=== PATIENT | female | born 1935 | race African-American/Black ===

== ENCOUNTER 2020-09-17 14:04 | Inpatient (IN) | payer MEDICARE, OTHER ==
[~2020-09-17] VITALS: Ht 170.2 cm
[2020-09-17] MEDS: MIDAZOLAM DRIP 50 mg/50mL 50 ML IV SCH ×2 (14:30→22:03)
[2020-09-17] MEDS ORDERED: fentaNYL Drip 2500mCg/250mlNS 250 ML IV SCH (14:30)
[2020-09-17 15:06] LABS: Eosinophils # (auto) 0.1 10 ^3/uL (0-0.8); Hemoglobin 8.9 g/dL (12.2-16.2); Monocytes # (auto) 0.2 10 ^3/uL (0-1.3); Neutrophils # (auto) 2.4 10 ^3/uL (1.6-8.6)
[2020-09-17 15:09] LABS: Basophils # (auto) 0.1 10 ^3/uL (0-0.2); Basophils % (auto) 1.3 % (0.0-2.0); Eosinophils % (auto) 1.4 % (0.0-7.0); Hematocrit 30.5 % (36.0-46.0); Lymphocytes # (auto) 2.8 10 ^3/uL (0.4-5.4); Lymphocytes % (auto) 51.2 % (10.0-50.0); Mean Corpuscular Hemoglobin 28.9 pg (28.0-32.0); Mean Corpuscular Volume 99.4 fL (80.0-100.0); Monocytes % (auto) 3.2 % (0.0-12.0); Neutrophils % (auto) 42.9 % (37.0-80.0); Platelet Count (auto) 116 10^3/uL (140-450); Red Blood Cells 3.07 10^6/uL (4.0-5.20); Red Cell Distribution Width 18.6 % (11.8-14.3); White Blood Cell 5.5 10^3/uL (4.4-10.8)
[2020-09-17 15:23] LABS: Albumin 1.5 g/dL (3.4-5.0); Calcium 6.3 mg/dL (8.5-10.1); Potassium 3.2 mmol/L (3.5-5.1)
[2020-09-17 15:26] LABS: BUN/Creatinine Ratio 7.4; Bilirubin, Total 0.3 mg/dL (0.2-1.0); Lactic Acid w/Reflex 9.5 mmol/L (0.4-2.0); Total Protein 3.1 g/dL (6.4-8.2)
[2020-09-17 15:51] LABS: Alcohol, Urine < 3.0 mg/dL (0-10); Amphetamine Screen, Urine NEGATIVE (NEGATIVE); Barbiturate Scree,Urine NEGATIVE (NEGATIVE); Benzodiazephine Screen, Urine NEGATIVE (NEGATIVE); Cannabinoid Screen, Urine NEGATIVE (NEGATIVE); Cocaine Screen, Urine NEGATIVE (NEGATIVE); Opiate Scree,Urine NEGATIVE (NEGATIVE); Phencyclidine Screen, Urine NEGATIVE (NEGATIVE)
[2020-09-17] MEDS: NOREPINEPHRINE 8 MG/250ML KIT 250 ML IV SCH (16:15)
[2020-09-17] MEDS ORDERED: SPIR25TA8 PO (16:52)
[2020-09-17] MEDS ORDERED: CARV6.2551 PO (16:52)
[2020-09-17] MEDS ORDERED: CHOL500021 PO (16:52)
[2020-09-17] MEDS ORDERED: FURO40TA4 PO (16:52)
[2020-09-17] MEDS ORDERED: ASPI-543 PO (16:52)
[2020-09-17] MEDS ORDERED: OYST500T29 PO (16:52)
[2020-09-17] MEDS ORDERED: AMIO200T4 PO (16:52)
[2020-09-17] MEDS ORDERED: NITROGLYCERIN 0.4 MG SL TAB SL PRN (17:15)
[2020-09-17] MEDS ORDERED: MORPHINE SULF INJ 2 MG/ML SYRINGE 1ML IV PRN (17:15)
[2020-09-17] MEDS ORDERED: ACETAMINOPHEN 650 MG RECT SUPP PR PRN (17:15)
[2020-09-17] MEDS ORDERED: CALCIUM CHL 100MG/ML 1,000 MG in D5W 5% 100 ML IV ONE (17:15)
[2020-09-17] MEDS ORDERED: CALCIUM GLUC 4.65meq/50ml D5AE 50 ML IV ONE ×2 (17:29→17:45)
[2020-09-17] MEDS ORDERED: POTASSIUM CHL 20MEQ/100ML 100 ML IV ONE (17:54)
[2020-09-17] MEDS ORDERED: AZITHROMYCIN 500MG/ 250ML 250 ML IV ONE ×2 (18:00)
[2020-09-17] MEDS: POTASSIUM CHL 20MEQ/100ML 100 ML IV SCH ×2 (18:06→20:11)
[2020-09-17 18:12] LABS: INR 2.05 (0.9-1.15)
[2020-09-17] MEDS: DOPamine 1600MCG/ML D5W 250 ML IV SCH ×2 (18:50→23:42)
[2020-09-17 21:17] VITALS: BP 120/50
[2020-09-17] MEDS: HEPARIN SODIUM (PORCINE) 5000 UNITS/ML 1ML VIAL SC SCH (23:23)
[2020-09-18] MEDS: NOREPINEPHRINE 8 MG/250ML KIT 250 ML IV SCH ×2 (02:15→07:00)
[2020-09-18 02:35] VITALS: BP 51/28
[2020-09-18] MEDS ORDERED: EPINEPHrine HCL 250 ML IV ONE (03:11)
[2020-09-18] MEDS ORDERED: SODIUM CHLORIDE 0.9% 500 ML IV ONE (03:15)
[2020-09-18] MEDS: EPINEPHrine HCL 250 ML IV SCH ×2 (03:17→09:58)
[2020-09-18] MEDS: DOPamine 1600MCG/ML D5W 250 ML IV SCH ×2 (05:20→09:58)
[2020-09-18] MEDS: PHENYLEPHRINE IV 250 ML IV SCH ×2 (06:00→10:12)
[2020-09-18] MEDS ORDERED: SODIUM BICARBONATE 8.4 % INJ 50ML VIAL IV ONE ×2 (06:00→08:00)
[2020-09-18] MEDS ORDERED: PHENYLEPHRINE IV 250 ML IV ONE (06:02)
[2020-09-18] MEDS: HEPARIN SODIUM (PORCINE) 5000 UNITS/ML 1ML VIAL SC SCH (06:18)
[2020-09-18 06:25] LABS: Hemoglobin 7.1 g/dL (12.2-16.2)
[2020-09-18 06:27] LABS: Hematocrit 26.2 % (36.0-46.0); Mean Corpuscular Hemoglobin 28.6 pg (28.0-32.0); Mean Corpuscular Hgb Conc. 26.9 g/dL (32.0-36.0); Platelet Count (auto) 116 10^3/uL (140-450); Red Blood Cells 2.47 10^6/uL (4.0-5.20); Red Cell Distribution Width 18.6 % (11.8-14.3); White Blood Cell 14.6 10^3/uL (4.4-10.8)
[2020-09-18 06:32] LABS: Potassium 4.8 mmol/L (3.5-5.1)
[2020-09-18 06:45] LABS: Basophils % (manual) 0 (0.0-2.0); Blast Cells 0; Promyelocytes % 0; Reactive Lymphocytes 0
[2020-09-18 06:56] LABS: BUN/Creatinine Ratio 6.5; Bilirubin, Total 1.6 mg/dL (0.2-1.0); Total Protein 2.4 g/dL (6.4-8.2)
[2020-09-18] MEDS ORDERED: ALBUMIN 25% 100 ML IV SCH (07:00)
[2020-09-18 07:06] LABS: Calcium 5.5 mg/dL (8.5-10.1)
[2020-09-18] MEDS ORDERED: VASOPRESSIN 20 UNIT/ML ONE (07:32)
[2020-09-18] MEDS ORDERED: VASOPRESSIN 50 UNITS in D5W 5% 247.5 ML IV SCH (07:45)
[2020-09-18] MEDS ORDERED: CALCIUM CHL 100MG/ML 1,000 MG in D5W 5% 100 ML IV ONE (08:00)
[2020-09-18 08:05] LABS: Magnesium 1.7 mg/dL (1.6-2.6); Phosphorus 5.2 mg/dL (2.5-4.90)
[2020-09-18 08:30] VITALS: BP 0/0
--- NOTE | 2020-09-18 08:30 | NUR ---
ADMIT TO ICU ZENAIDA ELY admitted to ICU. Patient transported to ICU overflow chemical laboratory technician bed 2 via gurney on pen ruler operator, intubated and portable ventilator. Patient connected to mechanical ventilator by Respiratory therapist YAYA rodriguez at bedside. Patient connected to ICU monitoring, heart rate 50's paced with bundle branch block. SBP unable to be obtained. Attempting to place BP cuff on other extremities. Patient on vasopressor therapy of Levophed, Vasopressin, Neosynephrine, dopamine, and epinephrine. Sedation has been titrated off. Pupils are a 4 mm and fixed. No cough or gag noted at this time. Patient does not respond to painful stimuli. Temporal temperature 95.3, festus hugger in place for rewarming. Pulses noted with Doppler carotid. Patient is orally intubated with 8.0 ETT 26 cm at the lip. Lungs diminished, tolerating ventilation. Oxygen saturation not consistent with poor wave form due to patient being cold. Attempted to place pulse ox on other fingers. Left femoral TLC present and patent. Blood noted at site of dressing. Large hematoma present, site outlined. See skin and wound assessment. Patient repositioned on side, sacral Optifoam placed for prevention. Will continue to monitor and notify MD of changes from baseline.
[2020-09-18 08:32] LABS: Band Neutrophils % (manual) 10; Eosinophils % (manual) 1 (0-7); Lymphocytes % (manual) 14 (10.0-50.0); Metamyelocytes % 1; Monocytes % (manual) 7 (0-12); Myelocytes % 1
--- NOTE | 2020-09-18 08:45 | NUR ---
UNABLE TO OBTAIN BLOOD PRESSURE. CUFF HAS BEEN MOVED TO EACH EXTREMITY IN AN ATTEMPT TO ACHIEVE A BLOOD PRESSURE READING. UNABLE. PATIENT LAID IN SUPINE AND REVERSE [place]. LEFT GROIN HEMATOMA NOTE NEAR CENTRAL LINE. MANUAL PRESSURE HELD. PULSES NOTED WITH DOPPLER ON LEFT CAROTID AND LEFT POSTERIOR TIBIALIS. PAGED. PATIENT CURRENTLY ON MAX RATE ON ALL VASOPRESSOR THERAPY VASOPRESSIN, NEOSYNEPHRINE, LEVOPHED, AND EPINEPHRINE.
[2020-09-18] MEDS ORDERED: FUROSEMIDE 20 MG/2 ML VIAL IV ONE (09:00)
--- NOTE | 2020-09-18 09:00 | NUR ---
AT BEDSIDE. AWARE OF INABILITY TO OBTAIN BLOOD PRESSURE. HEART RATE 50'S PACED. PULSES NOTED WITH DOPPLER. MD AWARE OF IV DRIPS. MD OBTAINED CONTACT INFORMATION FOR PATIENT DAUGHTER. MD TO UPDATE FAMILY. NO FURTHER MEDICATION ORDERS OBTAINED. WILL CONTINUE TO MONITOR.
--- NOTE | 2020-09-18 09:38 | NUR ---
PAGED PAGED TO NOTIFY OF BLOOD PRESSURE STILL NOT ABLE TO BE OBTAINED. MD WAS SUPPOSE TO SPEAK WITH FAMILY REGARDING PLAN OF CARE AND CODE STATUS. AWAITING CALL BACK.
--- NOTE | 2020-09-18 09:47 | NUR ---
MD VISIT AT BEDSIDE. MD NOTIFIED OF IV DRIPS, VITAL SIGNS, AND LABS. NO NEW ORDERS RECEIVED AT THIS TIME.
[2020-09-18] MEDS ORDERED: PANTOPRAZOLE 40 MG/10 ML VIAL INJ IV SCH (10:00)
[2020-09-18] MEDS ORDERED: NS 0.9% IV SCH (10:00)
[2020-09-18] MEDS ORDERED: AZITHROMYCIN IV SCH (10:00)
[2020-09-18] MEDS ORDERED: HEPARIN SODIUM (PORCINE) 5000 UNITS/ML 1ML VIAL IV SCH (10:00)
[2020-09-18] MEDS ORDERED: ATORVASTATIN 20 MG TAB PO SCH (10:00)
[2020-09-18 10:12] VITALS: BP 0/0
--- NOTE | 2020-09-18 10:30 | NUR ---
FAMILY CONTACTED PATIENTS (POA) DAUGHTER ANGEL ELY. CONFERENCE CALL WAS MADE WITH TWO OTHER DAUGHTERS SPRING AND SHAVONNE. ALL WERE IN AGREEMENT TO HAVE THEIR MOTHERS CODE STATUS CHANGED TO DNR AND HAVE A COMPASSIONATE WEANING PERFORMED. TWO RN CONSENT VIA PHONE PERFORMED. PAGED REGARDING NEW PLAN OF CARE.
--- NOTE | 2020-09-18 11:00 | NUR ---
GI CONSULT AT BEDSIDE FOR CONSULT.
--- NOTE | 2020-09-18 11:05 | NUR ---
MOTEL MAID VISIT LAYO HICKEY MOTEL MAID AT BEDSIDE. MOTEL MAID AWARE OF FAMILIES WISHES TO HAVE A COMPASSIONATE WEAN. NO AWARE OF LABS AND IV MEDICATIONS. ORDERS OBTAINED FOR DNR AND WEAN.
--- NOTE | 2020-09-18 11:15 | NUR ---
Respiratory note: TERMINAL WEAN. PT EXTUBATED.
--- NOTE | 2020-09-18 11:21 | NUR ---
COMPASSIONATE WEAN RT NIKKO AT BEDSIDE TO PERFORM COMPASSIONATE WEAN. DNR CODE STATUS IN PLACE. ALL VASOPRESSOR DRIPS TITRATED OFF.
--- NOTE | 2020-09-18 11:33 | NUR ---
CAMERA ENGINEER PAGED TO BEDSIDE TO PRONOUNCE.
--- NOTE | 2020-09-18 12:30 | NUR ---
[facility] CASE #[id number]. BODY RELEASED.
--- NOTE | 2020-09-18 12:30 | NUR ---
INVENTORY SPECIALIST MANAGER AND [facility] NOTIFIED OF PATIENTS PASSING.
--- NOTE | 2020-09-18 14:10 | NUR ---
CONTROLLER MECHANIC CALLED. BODY RELEASED BY DEPUTY BREEZY. DAUGHTER ANGEL NOTIFIED. INFORMATION FOR [employer] OBTAINED AND CALLED FOR DEPUTY OF COUNTER INTELLIGENCE OF BODY.
--- NOTE | 2020-09-18 18:42 | NUR ---
BODY MOVED TO [place]. PERSONAL BELONGINGS LEFT AT [facility] OPERATOR NURSING STATION BECAUSE PATIENT DAUGHTER STATED SHE WOULD COME BY TODAY OR TOMORROW TO PICK THEM UP.
== END 2020-09-18 11:35 | disposition expired | DRG 871 ==
LOC: ER 14:04 → TELE 17:02
PROVIDERS: ADMIT Specialist; ATTEND Specialist
PROC: 5A12012 Performance of Cardiac Output, Single, Manual (ICD-10-PCS; principal; 2020-09-17)
PROC: 5A1935Z Respiratory Ventilation, Less than 24 Consecutive Hours (ICD-10-PCS; 2020-09-17)
PROC: 0BH17EZ Insertion of Endotracheal Airway into Trachea, Via Natural or Artificial Opening (ICD-10-PCS; 2020-09-17)
PROC: 06HY33Z Insertion of Infusion Device into Lower Vein, Percutaneous Approach (ICD-10-PCS; 2020-09-17)
DX: A41.9 Sepsis, unspecified organism (principal); I21.4 Non-ST elevation (NSTEMI) myocardial infarction; J96.00 Acute respiratory failure, unspecified whether with hypoxia or hypercapnia; K72.00 Acute and subacute hepatic failure without coma; I42.9 Cardiomyopathy, unspecified; D68.9 Coagulation defect, unspecified; Z66 Do not resuscitate; I46.9 Cardiac arrest, cause unspecified; D64.9 Anemia, unspecified; E87.6 Hypokalemia; I12.9 Hypertensive chronic kidney disease with stage 1 through stage 4 chronic kidney disease, or unspecified chronic kidney disease; I25.10 Atherosclerotic heart disease of native coronary artery without angina pectoris; J44.9 Chronic obstructive pulmonary disease, unspecified; N18.9 Chronic kidney disease, unspecified; Z85.850 Personal history of malignant neoplasm of thyroid; E78.5 Hyperlipidemia, unspecified; E83.51 Hypocalcemia
CPT/HCPCS: 31500; 36415; 36556; 36600; 51702; 70450; 71045; 80053; 80307; 82805; 83605; 83735; 83880; 83970; 84100; 84443; 84484; 85007; 85025; 85027; 85610; 87040; 87070; 87205; 87426; 92950; 93005; 94002; 94003; 99291; G0378; J0171; J0610; J2250; J3480; J7060; P9047